=== PATIENT | female | born 1965 | race Two or more races ===

== ENCOUNTER 2017-01-31 11:35 | Emergency (ER) | payer OTHER ==
[~2017-01-31] VITALS: Ht 154.9 cm; Wt 76.5 kg
[2017-01-31 12:21] LABS: EOSINOPHIL (%) 2.3 % (0-5); EOSINOPHIL COUNT 0.1 K/uL (0-0.3); HEMATOCRIT 40.1 % (36.0-46.0); IMMATURE GRANULOCYTE (%) 0.8 % (0.0-0.7); INSTRUMENT ABS NEUTROPHIL CT 1.8 K/uL; LYMPHOCYTE COUNT 2.4 K/uL (1.0-2.8); MCH 25.3 PG (29.0-34.0); MCHC 32.4 G/DL (30.0-36.0); MEAN PLAT.VOLUME 9.5 uM^3 (9.5-12.4); MONOCYTE (%) 10.1 % (3-12); MONOCYTE COUNT 0.5 K/uL (0-0.8); NEUTROPHIL (%) 36.8 % (45-76); NEUTROPHIL COUNT 1.8 K/uL (1.8-6.4); PLATELET COUNT 245 K/uL (156-360); RBC DIS.WIDTH-CV 15.6 % (11.8-14.6); RBC DIS.WIDTH-SD 44.2 % (39-53); RED BLOOD COUNT 5.14 M/uL (3.80-5.20); WHITE BLOOD COUNT 4.9 K/uL (4.1-10.2)
[2017-01-31 12:29] LABS: CHLORIDE 102 mEq/L (99-109); POTASSIUM 4.2 mEq/L (3.7-5.4); SODIUM 139 mEq/L (136-147)
[2017-01-31 12:31] LABS: GLUCOSE 87 mg/dL (70-99)
[2017-01-31 12:32] LABS: ANION GAP 6 MEQ/L (2-14)
[2017-01-31 12:33] LABS: TOTAL BILIRUBIN 0.3 mg/dL (0.0-1.0)
[2017-01-31 12:35] LABS: ALKALINE PHOSPHATASE 77 IU/L (3-129); GFR ESTIMATE (CALCULATED) > 59 mL/min/
[2017-01-31 12:36] LABS: UREA NITROGEN (BUN) 15 mg/dL (9-23)
[2017-01-31 12:41] LABS: TROP-I INTERPRETATION NEGATIVE; TROPONIN-I < 0.01 ng/mL (0.0-0.30)
[2017-01-31] MEDS ORDERED: ZOFRAN ODT4 MG PO (13:24)
[2017-01-31 16:09] VITALS: BP 137/69
== END 2017-01-31 16:09 | disposition home or self-care (01) ==
LOC: EME 11:35
PROVIDERS: Nurse Practitioner Family
DX: R42 Dizziness and giddiness (principal); R00.1 Bradycardia, unspecified; R11.0 Nausea; R12 Heartburn; Z88.2 Allergy status to sulfonamides
CPT/HCPCS: 80053; 84484; 85025; 93005; 99281; 99284

== ENCOUNTER 2017-09-03 15:51 | Emergency (ER) | payer OTHER ==
[~2017-09-03] VITALS: Ht 154.9 cm; Wt 75.4 kg
[~2017-09-03 15:51] MED LIST: ZOFRAN ODT4 MG PO
[2017-09-03] MEDS ORDERED: MOTRIN600 MG PO (16:16)
[2017-09-03] MEDS ORDERED: KEFLEX500 MG PO (16:16)
[2017-09-03] MEDS ORDERED: ULTRAM50 MG PO (16:16)
[2017-09-03 17:04] VITALS: BP 125/78
== END 2017-09-03 17:06 | disposition home or self-care (01) ==
LOC: EME 15:51
DX: L02.512 Cutaneous abscess of left hand (principal); S60.417A Abrasion of left little finger, initial encounter; W27.2XXA Contact with scissors, initial encounter; Y99.0 Civilian activity done for income or pay; Z23 Encounter for immunization; M79.602 Pain in left arm; Z88.2 Allergy status to sulfonamides
CPT/HCPCS: 73140; 87070; 87075; 87185; 87205; 99281; 99284